=== PATIENT | male | born 1995 | race Caucasian/White ===

== ENCOUNTER 2018-11-25 16:10 | Emergency (ER) | payer BC ==
[~2018-11-25] VITALS: Ht 177.8 cm; Wt 97.5 kg
[~2018-11-25 16:10] MED LIST: IBUPROFEN600 MG PO; ROBAXIN500 M1 PO; ZOFRAN ODT4 MG SL
[2018-11-25] MEDS ORDERED: ROBAXIN500 M1 PO (17:23)
[2018-11-25] MEDS ORDERED: IBUPROFEN600 MG PO (17:23)
== END 2018-11-25 17:39 | disposition home or self-care (01) ==
LOC: ED 16:10
DX: S33.5XXA Sprain of ligaments of lumbar spine, initial encounter (principal); F32.9 Major depressive disorder, single episode, unspecified; Z79.899 Other long term (current) drug therapy; X50.0XXA Overexertion from strenuous movement or load, initial encounter; Y93.89 Activity, other specified; Y92.69 Other specified industrial and construction area as the place of occurrence of the external cause; Y99.8 Other external cause status